=== PATIENT | female | born 1995 | race Caucasian/White ===

== ENCOUNTER 2019-08-18 05:13 | Inpatient (IN) | payer BC ==
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
[2019-08-18] MEDS: RINGERS SOLUTION,LACTATED 1,000 ML IV PRN ×2 (06:23→06:25)
[2019-08-18 06:29] LABS: ABSOLUTE LYMPHOCYTES (AUTO) 1.8 10^3/uL (0.5-4.7); ABSOLUTE MONOCYTES (AUTO) 0.7 10^3/uL (0.1-1.4); BASOPHILS % (AUTO) 0.1 % (0-2); HEMATOCRIT 39.5 % (36.0-47.0); HEMOGLOBIN 13.5 g/dL (12.0-15.5); MEAN CORPUSCULAR HEMOGLOBIN 29.4 pg (27.0-33.4); MEAN CORPUSCULAR HGB CONC 34.2 g/dL (32.0-36.0); MEAN CORPUSCULAR VOLUME 86 fl (80-97); MONOCYTES % (AUTO) 10.6 % (3-13); PLATELET COUNT 213 10^3/uL (150-450); RED CELL DISTRIBUTION WIDTH 13.7 % (11.5-14.0); SEGMENTED NEUTROPHILS % (AUTO) 61.3 % (42-78); TOTAL CELLS COUNTED % (AUTO) 100 %; WHITE BLOOD COUNT 6.6 10^3/uL (4.0-10.5)
[2019-08-18 06:31] LABS: APPEARANCE,URINE CLEAR; BILIRUBIN,URINE NEGATIVE (NEGATIVE); COLOR,URINE COLORLESS; GLUCOSE, URINE NEGATIVE (NEGATIVE); KETONES,URINE NEGATIVE (NEGATIVE); LEUKOCYTE ESTERASE,URINE NEGATIVE (NEGATIVE); NITRITE,URINE NEGATIVE (NEGATIVE); PROTEIN,URINE NEGATIVE (NEGATIVE); URINE SPECIFIC GRAVITY 1.002; UROBILINOGEN,URINE NEGATIVE mg/dL (<2.0)
[2019-08-18 06:45] LABS: URINE AMPHETAMINES SCREEN NEGATIVE; URINE BARBITURATES SCREEN NEGATIVE; URINE BENZODIAZEPINES SCREEN NEGATIVE; URINE COCAINE SCREEN NEGATIVE; URINE MARIJUANA (THC) SCREEN NEGATIVE; URINE METHADONE SCREEN NEGATIVE; URINE PHENCYCLIDINE SCREEN NEGATIVE
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
[2019-08-18 07:27] LABS: ALBUMIN 4.1 g/dL (3.5-5.0); ALCOHOL 160 mg/dL (NONE DETECTED); ALKALINE PHOSPHATASE 53 U/L (38-126); ANION GAP 6 (5-19); ASPARTATE AMINO TRANSFERASE 25 U/L (14-36); BILIRUBIN,TOTAL 0.3 mg/dL (0.2-1.3); BLOOD UREA NITROGEN 5 mg/dL (7-20); CALCIUM 8.6 mg/dL (8.4-10.2); CARBON DIOXIDE 28 mmol/L (22-30); CHLORIDE 108 mmol/L (98-107); CREATINE KINASE 87 U/L (30-135); GLUCOSE 74 mg/dL (75-110); POTASSIUM 3.5 mmol/L (3.6-5.0); TOTAL PROTEIN 7.2 g/dL (6.3-8.2)
[2019-08-18 07:30] LABS: ACETAMINOPHEN < 10 ug/mL (10-30)
[2019-08-18 07:31] LABS: SALICYLATE < 1.0 mg/dL (2.0-20.0)
[2019-08-18] MEDS ORDERED: NORMAL SALINE 1000 ML 1,000 ML IV ONE (08:03)
[2019-08-18 13:51] LABS: ANION GAP 19 (5-19); BLOOD UREA NITROGEN 4 mg/dL (7-20); CHLORIDE 107 mmol/L (98-107); GLUCOSE 97 mg/dL (75-110); POTASSIUM 4.2 mmol/L (3.6-5.0)
[2019-08-18 13:53] LABS: CARBON DIOXIDE 16 mmol/L (22-30)
[2019-08-18] MEDS ORDERED: ACETAMINOPHEN 325 MG TABLET PO PRN (14:26)
[2019-08-18] MEDS ORDERED: ONDANSETRON HCL INJ/PF 4 MG/2 ML SDV IV PRN (14:26)
[2019-08-18] MEDS ORDERED: LORAZEPAM INJ 2 MG/1 ML VIAL IV PRN ×2 (14:34→23:38)
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
--- NOTE | 2019-08-18 15:52 | RADIOLOGY REPORT (SQ) ---
EXAM DESCRIPTION: CT HEAD WITHOUT IMAGES COMPLETED DATE/TIME: 08/18/2019 3:10 pm REASON FOR STUDY: seizure COMPARISON: None. TECHNIQUE: Axial images acquired through the brain without intravenous contrast. Images reviewed wi th bone, brain and subdural windows. Additional sagittal and coronal reconstructions were generated. Images stored on PACS. All CT scanners at this facility use dose modulation, iterative reconstruction, and/or weight based d osing when appropriate to reduce radiation dose to as low as reasonably achievable (ALARA). [facility]: Dose Right [facility]: CareDose [facility]: Dose Right [facility]: Teradose 4D [facility]: AmpliSense RADIATION DOSE: CT Rad equipment meets quality standard of care and radiation dose reduction techniq ues were employed. CTDIvol: 53.2 mGy. DLP: 858 mGy-cm. mGy. LIMITATIONS: None. FINDINGS: VENTRICLES: Normal size and contour. CEREBRUM: No masses. No hemorrhage. No midline shift. No evidence for acute infarction. Normal gra y/white matter differentiation. No areas of low density in the white matter. CEREBELLUM: No masses. No hemorrhage. No alteration of density. No evidence for acute infarction. EXTRAAXIAL SPACES: No fluid collections. No masses. ORBITS AND GLOBE: No intra- or extraconal masses. Normal contour of globe without masses. CALVARIUM: No fracture. PARANASAL SINUSES: No fluid or mucosal thickening. SOFT TISSUES: No mass or hematoma. OTHER: No other significant finding. IMPRESSION: NORMAL BRAIN CT WITHOUT CONTRAST. EVIDENCE OF ACUTE STROKE: NO. COMMENT: Quality ID # [id number]: Final reports with documentation of one or more dose reduction techniques (e.g., Automated exposure control, adjustment of the mA and/or kV according to patient size, use of iterative reconstruction technique) TECHNICAL DOCUMENTATION: JOB ID: [id number] 2010 [employer]- All Rights Reserved Reading location - IP/workstation name: [email or web address]
[2019-08-18] MEDS ORDERED: DEXTROSE 50%-WATER 25 GM/50 ML DISP.SYRIN IV PRN ×2 (16:32)
[2019-08-18] MEDS ORDERED: DEXTROSE 40% GEL 15 GM TUBE PO PRN ×2 (16:32)
[2019-08-18] MEDS ORDERED: GLUCAGON,HUMAN RECOMB 1 MG INJ SUBCUT PRN (16:32)
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
--- NOTE | 2019-08-18 17:13 | RADIOLOGY REPORT (SQ) ---
EXAM DESCRIPTION: CHEST SINGLE VIEW IMAGES COMPLETED DATE/TIME: 08/18/2019 3:33 pm REASON FOR STUDY: dyspnea COMPARISON: None. EXAM PARAMETERS: NUMBER OF VIEWS: One view. TECHNIQUE: Single frontal radiographic view of the chest acquired. RADIATION DOSE: NA LIMITATIONS: None. FINDINGS: LUNGS AND PLEURA: No opacities, masses or pneumothorax. No pleural effusion. MEDIASTINUM AND HILAR STRUCTURES: No masses. Contour normal. HEART AND VASCULAR STRUCTURES: Heart normal in size. Normal vasculature. BONES: No acute findings. HARDWARE: None in the chest. OTHER: No other significant finding. IMPRESSION: NO ACUTE RADIOGRAPHIC FINDING IN THE CHEST. TECHNICAL DOCUMENTATION: JOB ID: [id number] 2010 [employer]- All Rights Reserved Reading location - IP/workstation name: [email or web address]
[2019-08-18] MEDS ORDERED: CITRIC ACID/SODIUM CITRATE ORAL SOLN 15 ML UDCUP PO SCH (18:00)
[2019-08-18] MEDS ORDERED: LEVETIRACETAM 1000 MG/NACL-ISO 1,000 MG/100 ML RTUPB IV ONE (21:58)
--- NOTE | 2019-08-18 22:07 | EKG REPORT ---
SEVERITY:- BORDERLINE ECG - SINUS TACHYCARDIA BORDERLINE T ABNORMALITIES, ANTERIOR LEADS : Confirmed by: Snuita Dunham MD 18-Aug-2019 22:06:51
--- NOTE | 2019-08-18 22:07 | EKG REPORT ---
SEVERITY:- ABNORMAL ECG - SINUS TACHYCARDIA NONSPECIFIC INTRAVENTRICULAR CONDUCTION DELAY MINIMAL ST DEPRESSION, ANTEROLATERAL LEADS : Confirmed by: Sunita Dunham MD 18-Aug-2019 22:07:10
--- NOTE | 2019-08-18 22:09 | EKG REPORT ---
SEVERITY:- BORDERLINE ECG - SINUS TACHYCARDIA BORDERLINE PROLONGED QT INTERVAL : Confirmed by: Sunita Dunham MD 18-Aug-2019 22:07:39
--- NOTE | 2019-08-18 22:09 | EKG REPORT ---
SEVERITY:- BORDERLINE ECG - SINUS TACHYCARDIA BORDERLINE RIGHT AXIS DEVIATION LATERAL Q WAVES, PROBABLY NORMAL VARIATION : Confirmed by: Sunita Dunham MD 18-Aug-2019 22:07:16
[2019-08-18] MEDS: HEPARIN SOD (PORCINE) 5,000 UNIT/ML 1 ML VIAL SUBCUT SCH (22:31)
[2019-08-18] MEDS: FAMOTIDINE 20 MG TABLET PO SCH (22:33)
[2019-08-18] MEDS: LEVETIRACETAM 1000 MG/NACL-ISO 1,000 MG/100 ML RTUPB IV SCH (22:34)
[2019-08-19] MEDS: NORMAL SALINE 1000 ML 1,000 ML IV PRN ×2 (02:10→19:04)
[2019-08-19] MEDS: HEPARIN SOD (PORCINE) 5,000 UNIT/ML 1 ML VIAL SUBCUT SCH ×3 (05:23→22:11)
[2019-08-19 05:41] LABS: ABSOLUTE LYMPHOCYTES (AUTO) 1.2 10^3/uL (0.5-4.7); ABSOLUTE MONOCYTES (AUTO) 1.2 10^3/uL (0.1-1.4); ABSOLUTE NEUT (AUTO) 7.6 10^3/uL (1.7-8.2); HEMOGLOBIN 12.4 g/dL (12.0-15.5); LYMPHOCYTES % (AUTO) 12.4 % (13-45); MEAN CORPUSCULAR HEMOGLOBIN 29.4 pg (27.0-33.4); MEAN CORPUSCULAR HGB CONC 34.4 g/dL (32.0-36.0); MEAN CORPUSCULAR VOLUME 85 fl (80-97); PLATELET COUNT 170 10^3/uL (150-450); RED BLOOD COUNT 4.22 10^6/uL (3.72-5.28); RED CELL DISTRIBUTION WIDTH 13.8 % (11.5-14.0); SEGMENTED NEUTROPHILS % (AUTO) 75.6 % (42-78); TOTAL CELLS COUNTED % (AUTO) 100 %; WHITE BLOOD COUNT 10.1 10^3/uL (4.0-10.5)
[2019-08-19 06:05] LABS: ALBUMIN 3.7 g/dL (3.5-5.0); ALKALINE PHOSPHATASE 56 U/L (38-126); AMYLASE 105 U/L (30-110); ANION GAP 7 (5-19); ASPARTATE AMINO TRANSFERASE 26 U/L (14-36); BILIRUBIN,TOTAL 0.6 mg/dL (0.2-1.3); BLOOD UREA NITROGEN 4 mg/dL (7-20); CALCIUM 8.5 mg/dL (8.4-10.2); CARBON DIOXIDE 24 mmol/L (22-30); CHLORIDE 106 mmol/L (98-107); CHOLESTEROL 130.85 mg/dL (0-200); GLUCOSE 78 mg/dL (75-110); PHOSPHORUS 2.8 mg/dL (2.5-4.5); POTASSIUM 3.5 mmol/L (3.6-5.0); TOTAL PROTEIN 6.6 g/dL (6.3-8.2); TRIGLYCERIDES 76 mg/dL (<150)
[2019-08-19 06:19] LABS: DIRECT LDL 56 mg/dL (<100)
[2019-08-19] MEDS ORDERED: POTASSI CL 20 MEQ/50 ML RIDER 20 MEQ/50 ML RTUPB IV ONE (07:15)
--- NOTE | 2019-08-19 08:26 | PDOC PROGRESS REPORT ---
Subjective Progress Note for:: 08/19/19 Subjective:: 23 year old female with history of depression, anxiety got into argument with her significant other took 50-75 Effexor tablets as a suicidal attempt then felt remorseful with the help of her friend had induced vomiting and decided to came to the emergency room for further evaluation. In the emergency room she got a grand mal seizure lasted less than 2 minutes she was postictal for a short time and completely recovered. Poison control was notified the recommendation is to keep the patient in the hospital for cardiac monitoring. The labs in the emergency room within normal limits except for a bicarb of 16. EKG shows sinus tachycardia with nonspecific changes. Patient agreed to be a smoker and also admitting alcohol use almost on daily basis. He admitted taking Effexor as a suicidal attempt. She was admitted in [place] with suicidal attempt before. 08/19/2019-patient has another seizure, grand mal seizure in the medical floor. She was given a Keppra thousand milligrams IV continued twice a day. Also on Ativan 1 mg IV every 4 as needed for seizures and anxiety. No seizure activity in the last 14 to 16 hours. Comfortably in the bed communicating reasonably. Not in distress. patient is under IVC. EKG shows sinus tachycardia and serum potassium is 3.5 to give IV 20 mg of p.o. potassium. Reason For Visit: SUICIDAL ATTEMPT Physical Exam Vital Signs: Temp Pulse Resp BP Pulse Ox 97.9 F 108 H 20 122/87 H 100 08/19/19 07:32 08/19/19 07:32 08/19/19 07:32 08/19/19 07:32 08/19/19 07:32 Intake & Output 08/18/19 08/19/19 08/20/19 06:59 06:59 06:59 Intake Total 33 2620 Output Total 1200 Balance 33 1420 Weight 77.3 kg 71.5 kg General appearance: PRESENT: no acute distress, well-developed Head exam: PRESENT: atraumatic Eye exam: PRESENT: PERRLA Mouth exam: PRESENT: moist, tongue midline Teeth exam: PRESENT: poor dentation Neck exam: ABSENT: carotid bruit, JVD, lymphadenopathy, thyromegaly Respiratory exam: PRESENT: decreased breath sounds Cardiovascular exam: PRESENT: RRR. ABSENT: diastolic murmur, rubs, systolic murmur GI/Abdominal exam: PRESENT: normal bowel sounds, soft. ABSENT: distended, guarding, mass, organolmegaly, rebound, tenderness Rectal exam: PRESENT: deferred Extremities exam: PRESENT: full ROM. ABSENT: calf tenderness, clubbing, pedal edema Neurological exam: PRESENT: alert, awake, oriented to person, oriented to place, oriented to time, oriented to situation, CN II-XII grossly intact. ABSENT: motor sensory deficit Psychiatric exam: PRESENT: appropriate affect, normal mood. ABSENT: homicidal ideation, suicidal ideation Results Laboratory Results: 08/19/19 04:55 08/19/19 04:55 08/18/19 08/19/19 08/19/19 13:15 04:55 04:55 WBC 10.1 RBC 4.22 Hgb 12.4 Hct 36.0 MCV 85 MCH 29.4 MCHC 34.4 RDW 13.8 Plt Count 170 Seg Neutrophils % 75.6 Sodium 141.7 136.7 L Potassium 4.2 3.5 L Chloride 107 106 Carbon Dioxide 16 L D 24 Anion Gap 19 7 BUN 4 L 4 L Creatinine 0.68 0.61 Est GFR ( Amer) > 60 > 60 Glucose 97 78 Calcium 9.0 8.5 Phosphorus 2.8 Magnesium 2.0 2.0 Total Bilirubin 0.6 AST 26 Alkaline Phosphatase 56 Total Protein 6.6 Albumin 3.7 Triglycerides 76 Cholesterol 130.85 LDL Cholesterol Direct 56 VLDL Cholesterol 15.0 HDL Cholesterol 60 Amylase 105 Lipase 43.5 TSH 08/19/19 04:55 WBC RBC Hgb Hct MCV MCH MCHC RDW Plt Count Seg Neutrophils % Sodium Potassium Chloride Carbon Dioxide Anion Gap BUN Creatinine Est GFR ( Amer) Glucose Calcium Phosphorus Magnesium Total Bilirubin AST Alkaline Phosphatase Total Protein Albumin Triglycerides Cholesterol LDL Cholesterol Direct VLDL Cholesterol HDL Cholesterol Amylase Lipase TSH 2.78 08/18/19 08/18/19 08/18/19 06:09 06:09 06:51 Creatine Kinase Cancelled CK-MB (CK-2) Cancelled 0.47 08/18/19 08/18/19 06:51 13:15 Creatine Kinase 87 115 CK-MB (CK-2) Impressions: Head CT 08/18/19 00:00 IMPRESSION: NORMAL BRAIN CT WITHOUT CONTRAST. EVIDENCE OF ACUTE STROKE: NO. Chest X-Ray 08/18/19 14:30 IMPRESSION: NO ACUTE RADIOGRAPHIC FINDING IN THE CHEST. Assessment and Plan - Diagnosis (1) Intentional drug overdose Qualifiers: Encounter type: initial encounter Qualified Code(s): T50.902A - Poisoning by unspecified drugs, medicaments and biological substances, intentional self- harm, initial encounter Is this a current diagnosis for this admission?: Yes Plan: 08/18/2019-patient is going to be admitted to [facility] with diagnosis of intentional drug overdose. To start on IV fluids normal saline at 125 cc/h to do the lab work on regular basis and monitor the EKG and cardiac rhythm. Patient is started on regular diet. Aspiration fall seizure precautions are requested. GI prophylaxis DVT prophylaxis requested. CT head was requested because of history of seizure. Started on Bicitra 15 mL p.o. 3 times daily for bicarb of 16. Psych consult was requested by the ER physician. Sitter will be present. 08/19/2019-patient has another seizure secondary to drug overdose with Effexor in the medical floor. Started on Keppra and IV Ativan as needed. No seizure a ctivity from last night. Patient is under IVC commitment. Patient is going to be n.p.o. for today to prevent aspiration pneumonia if the seizures recurs. Yesterday she threw up all the charcoal and probably with Effexor tablets in the stomach (2) Tobacco abuse Is this a current diagnosis for this admission?: No Plan: 08/18/2019-patient is a chronic smoker dilated smoker smokes 5 to 6 cigarettes/day. Smoking counseling was provided to place her on nicotine patch. (3) Depression Is this a current diagnosis for this admission?: No Plan: 08/18/19-patient is on Effexor for her depression the Effexor is on hold at this time. (4) Alcohol abuse Is this a current diagnosis for this admission?: Yes Plan: 08/19/2019-serum alcohol level is 160 in the emergency room admitted to drink hard liquor in her large amounts. WA protocol in place. On Ativan 1 mg every 4 hours as needed to prevent DTs. Start the patient on IV thiamine and folic acid.
[2019-08-19] MEDS: FAMOTIDINE 20 MG TABLET PO SCH ×2 (09:28→22:11)
[2019-08-19] MEDS: LEVETIRACETAM 1000 MG/NACL-ISO 1,000 MG/100 ML RTUPB IV SCH ×2 (09:28→22:10)
[2019-08-19] MEDS: NICOTINE 21 MG/24 HR PATCH.TD24 TD SCH (09:28)
[2019-08-19] MEDS ORDERED: THIAMINE HCL 100 MG, FOLIC ACID 1 MG in NORMAL SALINE 250 ML IV SCH (10:00)
[2019-08-19] MEDS ORDERED: THIAMINE HCL 100 MG in NORMAL SALINE 50 ML IV SCH (10:00)
[2019-08-19] MEDS ORDERED: FOLIC ACID INJ 5 MG/1 ML 10 ML VIAL IV SCH (10:00)
[2019-08-19] MEDS ORDERED: BENZOCAINE/MENTHOL SORE THROAT LOZENGE BUCCAL PRN (10:41)
--- NOTE | 2019-08-19 21:52 | EKG REPORT ---
SEVERITY:- BORDERLINE ECG - SINUS RHYTHM BORDERLINE PROLONGED QT INTERVAL : Confirmed by: Sunita Dunham MD 19-Aug-2019 21:51:41
[2019-08-20] MEDS: NORMAL SALINE 1000 ML 1,000 ML IV PRN (03:52)
[2019-08-20 05:11] LABS: ABSOLUTE LYMPHOCYTES (AUTO) 1.1 10^3/uL (0.5-4.7); ABSOLUTE MONOCYTES (AUTO) 0.8 10^3/uL (0.1-1.4); ABSOLUTE NEUT (AUTO) 4.9 10^3/uL (1.7-8.2); BASOPHILS % (AUTO) 0.1 % (0-2); HEMATOCRIT 38.3 % (36.0-47.0); HEMOGLOBIN 13.2 g/dL (12.0-15.5); LYMPHOCYTES % (AUTO) 15.9 % (13-45); MEAN CORPUSCULAR HEMOGLOBIN 29.4 pg (27.0-33.4); MEAN CORPUSCULAR HGB CONC 34.4 g/dL (32.0-36.0); MEAN CORPUSCULAR VOLUME 85 fl (80-97); MONOCYTES % (AUTO) 11.6 % (3-13); PLATELET COUNT 177 10^3/uL (150-450); RED BLOOD COUNT 4.49 10^6/uL (3.72-5.28); RED CELL DISTRIBUTION WIDTH 13.7 % (11.5-14.0); SEGMENTED NEUTROPHILS % (AUTO) 72.4 % (42-78); TOTAL CELLS COUNTED % (AUTO) 100 %; WHITE BLOOD COUNT 6.8 10^3/uL (4.0-10.5)
[2019-08-20 05:29] LABS: ALKALINE PHOSPHATASE 61 U/L (38-126); ANION GAP 8 (5-19); ASPARTATE AMINO TRANSFERASE 61 U/L (14-36); BILIRUBIN,TOTAL 0.6 mg/dL (0.2-1.3); BLOOD UREA NITROGEN 3 mg/dL (7-20); CALCIUM 8.3 mg/dL (8.4-10.2); CARBON DIOXIDE 25 mmol/L (22-30); CHLORIDE 103 mmol/L (98-107); GLUCOSE 81 mg/dL (75-110); POTASSIUM 3.8 mmol/L (3.6-5.0); TOTAL PROTEIN 6.6 g/dL (6.3-8.2)
[2019-08-20] MEDS: HEPARIN SOD (PORCINE) 5,000 UNIT/ML 1 ML VIAL SUBCUT SCH ×3 (06:35→21:11)
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
[2019-08-20] MEDS: NICOTINE 21 MG/24 HR PATCH.TD24 TD SCH (09:19)
[2019-08-20] MEDS: FOLIC ACID 1 MG TABLET PO SCH (09:23)
[2019-08-20] MEDS: FAMOTIDINE 20 MG TABLET PO SCH ×2 (09:23→21:10)
[2019-08-20] MEDS: THIAMINE HCL 100 MG TABLET PO SCH (09:23)
--- NOTE | 2019-08-20 17:21 | EKG REPORT ---
SEVERITY:- BORDERLINE ECG - SINUS RHYTHM BORDERLINE PROLONGED QT INTERVAL : Confirmed by: Sunita Dunham MD 20-Aug-2019 17:21:09
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
[2019-08-20] MEDS: BUSPIRONE HCL 10 MG TABLET PO SCH (21:10)
[2019-08-21 05:57] LABS: ABSOLUTE LYMPHOCYTES (AUTO) 1.4 10^3/uL (0.5-4.7); ABSOLUTE MONOCYTES (AUTO) 0.9 10^3/uL (0.1-1.4); HEMATOCRIT 40.1 % (36.0-47.0); HEMOGLOBIN 13.7 g/dL (12.0-15.5); LYMPHOCYTES % (AUTO) 19.4 % (13-45); MEAN CORPUSCULAR HGB CONC 34.1 g/dL (32.0-36.0); MEAN CORPUSCULAR VOLUME 85 fl (80-97); MONOCYTES % (AUTO) 11.9 % (3-13); PLATELET COUNT 195 10^3/uL (150-450); RED BLOOD COUNT 4.71 10^6/uL (3.72-5.28); RED CELL DISTRIBUTION WIDTH 13.4 % (11.5-14.0); SEGMENTED NEUTROPHILS % (AUTO) 68.7 % (42-78); TOTAL CELLS COUNTED % (AUTO) 100 %; WHITE BLOOD COUNT 7.3 10^3/uL (4.0-10.5)
[2019-08-21] MEDS: HEPARIN SOD (PORCINE) 5,000 UNIT/ML 1 ML VIAL SUBCUT SCH ×3 (06:37→22:05)
--- NOTE | 2019-08-21 08:59 | PDOC PROGRESS REPORT ---
Subjective Progress Note for:: 08/21/19 Subjective:: 23 year old female with history of depression, anxiety got into argument with her significant other took 50-75 Effexor tablets as a suicidal attempt then felt remorseful with the help of her friend had induced vomiting and decided to came to the emergency room for further evaluation. In the emergency room she got a grand mal seizure lasted less than 2 minutes she was postictal for a short time and completely recovered. Poison control was notified the recommendation is to keep the patient in the hospital for cardiac monitoring. The labs in the emergency room within normal limits except for a bicarb of 16. EKG shows sinus tachycardia with nonspecific changes. Patient agreed to be a smoker and also admitting alcohol use almost on daily basis. He admitted taking Effexor as a suicidal attempt. She was admitted in [place] with suicidal attempt before. 08/19/2019-patient has another seizure, grand mal seizure in the medical floor. She was given a Keppra thousand milligrams IV continued twice a day. Also on Ativan 1 mg IV every 4 as needed for seizures and anxiety. No seizure activity in the last 14 to 16 hours. Comfortably in the bed communicating reasonably. Not in distress. patient is under IVC. EKG shows sinus tachycardia and serum potassium is 3.5 to give IV 20 mg of p.o. potassium. 08/20/19-no acute events in the last 24 hours. Patient is still under IVC commitment. Plan is to discontinue Keppra to discontinue IV fluids. LFTs went up a little bit. Patient is a still on IV Ativan as needed to prevent DTs. 08/21/19-patient condition is stable. No acute events in the last 24 hours. Afebrile. No seizure activity was noted. Keppra was discontinued. Patient is not on IV fluids. Poison control signed off. Patient is medically cleared today to go to inpatient rehab. Reason For Visit: SUICIDAL ATTEMPT Physical Exam Vital Signs: Temp Pulse Resp BP Pulse Ox 98.5 F 91 18 102/70 98 08/21/19 07:41 08/21/19 07:41 08/21/19 07:41 08/21/19 07:41 08/21/19 07:41 Intake & Output 08/20/19 08/21/19 08/22/19 06:59 06:59 06:59 Intake Total 2501.2 1720 Output Total 3100 1900 Balance -598.8 -180 Weight 73.7 kg 75.6 kg General appearance: PRESENT: no acute distress, well-developed Head exam: PRESENT: atraumatic Eye exam: PRESENT: PERRLA Mouth exam: PRESENT: moist, tongue midline Teeth exam: PRESENT: poor dentation Neck exam: ABSENT: carotid bruit, JVD, lymphadenopathy, thyromegaly Respiratory exam: PRESENT: decreased breath sounds Cardiovascular exam: PRESENT: RRR. ABSENT: diastolic murmur, rubs, systolic murmur GI/Abdominal exam: PRESENT: normal bowel sounds, soft. ABSENT: distended, guarding, mass, organolmegaly, rebound, tenderness Rectal exam: PRESENT: deferred Extremities exam: PRESENT: full ROM. ABSENT: calf tenderness, clubbing, pedal edema Neurological exam: PRESENT: alert, awake, oriented to person, oriented to place, oriented to time, oriented to situation, CN II-XII grossly intact. ABSENT: motor sensory deficit Psychiatric exam: PRESENT: appropriate affect, normal mood. ABSENT: homicidal ideation, suicidal ideation Results Laboratory Results: 08/21/19 05:10 08/20/19 04:22 08/21/19 05:10 WBC 7.3 RBC 4.71 Hgb 13.7 Hct 40.1 MCV 85 MCH 29.0 MCHC 34.1 RDW 13.4 Plt Count 195 Seg Neutrophils % 68.7 08/18/19 08/18/19 08/18/19 06:09 06:09 06:51 Creatine Kinase Cancelled CK-MB (CK-2) Cancelled 0.47 08/18/19 08/18/19 06:51 13:15 Creatine Kinase 87 115 CK-MB (CK-2) Impressions: Head CT 08/18/19 00:00 IMPRESSION: NORMAL BRAIN CT WITHOUT CONTRAST. EVIDENCE OF ACUTE STROKE: NO. Chest X-Ray 08/18/19 14:30 IMPRESSION: NO ACUTE RADIOGRAPHIC FINDING IN THE CHEST. Assessment and Plan - Diagnosis (1) Intentional drug overdose Qualifiers: Encounter type: initial encounter Qualified Code(s): T50.902A - Poisoning by unspecified drugs, medicaments and biological substances, intentional self- harm, initial encounter Is this a current diagnosis for this admission?: Yes Plan: 08/18/2019-patient is going to be admitted to [facility] with diagnosis of intentional drug overdose. To start on IV fluids normal saline at 125 cc/h to do the lab work on regular basis and monitor the EKG and cardiac rhythm. Patient is started on regular diet. Aspiration fall seizure precautions are requested. GI prophylaxis DVT prophylaxis requested. CT head was requested because of history of seizure. Started on Bicitra 15 mL p.o. 3 times daily for bicarb of 16. Psych consult was requested by the ER physician. Sitter will be present. 08/19/2019-patient has another seizure secondary to drug overdose with Effexor in the medical floor. Started on Keppra and IV Ativan as needed. No seizure activity from last night. Patient is under IVC commitment. Patient is going to be n.p.o. for today to prevent aspiration pneumonia if the seizures recurs. Yesterday she threw up all the charcoal and probably with Effexor tablets in the stomach 08/20/2019-2 discontinue Keppra today and to discontinue IV fluids to start on regular diet. Patient is still under IVC. No acute events in the last 24 hours. Afebrile. 08/21/19-patient admitted with intentional drug overdose as a suicidal attempt. She is reactivity was noted in the ER and one episode upstairs. Now patient is stable for more than 48 hours. Patient is medically cleared. Started on BuSpar 5 mg p.o. twice daily as per behavioral therapy team recommendations. (2) Tobacco abuse Is this a current diagnosis for this admission?: No Plan: 08/18/2019-patient is a chronic smoker dilated smoker smokes 5 to 6 cigarettes/day. Smoking counseling was provided to place her on nicotine patch. (3) Depression Is this a current diagnosis for this admission?: No Plan: 08/18/19-patient is on Effexor for her depression the Effexor is on hold at this time. (4) Alcohol abuse Is this a current diagnosis for this admission?: Yes Plan: 08/19/2019-serum alcohol level is 160 in the emergency room admitted to drink hard liquor in her large amounts. [facility] protocol in place. On Ativan 1 mg every 4 hours as needed to prevent DTs. Start the patient on IV thiamine and folic acid. 08/20/2019-patient is receiving IV thiamine and IV folic acid. Plan is to switch the medications to p.o. from today. On Ativan 1 mg every 2 hours as needed for agitation. 08/21/2019-patient is more alert more awake no DTs noticed. Patient is on Ativan as needed to prevent DTs.
[2019-08-21] MEDS: FAMOTIDINE 20 MG TABLET PO SCH ×2 (09:18→22:05)
[2019-08-21] MEDS: THIAMINE HCL 100 MG TABLET PO SCH (09:18)
[2019-08-21] MEDS: FOLIC ACID 1 MG TABLET PO SCH (09:19)
[2019-08-21] MEDS: BUSPIRONE HCL 10 MG TABLET PO SCH ×2 (09:19→22:05)
[2019-08-21] MEDS: NICOTINE 21 MG/24 HR PATCH.TD24 TD SCH (09:20)
[2019-08-22] MEDS: HEPARIN SOD (PORCINE) 5,000 UNIT/ML 1 ML VIAL SUBCUT SCH ×2 (06:31→13:25)
--- NOTE | 2019-08-22 08:53 | PDOC PROGRESS REPORT ---
Subjective Progress Note for:: 08/22/19 Subjective:: 23 year old female with history of depression, anxiety got into argument with her significant other took 50-75 Effexor tablets as a suicidal attempt then felt remorseful with the help of her friend had induced vomiting and decided to came to the emergency room for further evaluation. In the emergency room she got a grand mal seizure lasted less than 2 minutes she was postictal for a short time and completely recovered. Poison control was notified the recommendation is to keep the patient in the hospital for cardiac monitoring. The labs in the emergency room within normal limits except for a bicarb of 16. EKG shows sinus tachycardia with nonspecific changes. Patient agreed to be a smoker and also admitting alcohol use almost on daily basis. He admitted taking Effexor as a suicidal attempt. She was admitted in [place] with suicidal attempt before. 08/19/2019-patient has another seizure, grand mal seizure in the medical floor. She was given a Keppra thousand milligrams IV continued twice a day. Also on Ativan 1 mg IV every 4 as needed for seizures and anxiety. No seizure activity in the last 14 to 16 hours. Comfortably in the bed communicating reasonably. Not in distress. patient is under IVC. EKG shows sinus tachycardia and serum potassium is 3.5 to give IV 20 mg of p.o. potassium. 08/20/19-no acute events in the last 24 hours. Patient is still under IVC commitment. Plan is to discontinue Keppra to discontinue IV fluids. LFTs went up a little bit. Patient is a still on IV Ativan as needed to prevent DTs. 08/21/19-patient condition is stable. No acute events in the last 24 hours. Afebrile. No seizure activity was noted. Keppra was discontinued. Patient is not on IV fluids. Poison control signed off. Patient is medically cleared today to go to inpatient rehab. 08/22/2019-patient is medically cleared to go to inpatient psych facility. No acute events in the last 24 hours. Afebrile. Reason For Visit: SUICIDAL ATTEMPT Physical Exam Vital Signs: Temp Pulse Resp BP Pulse Ox 98.1 F 71 14 124/68 100 08/22/19 03:26 08/22/19 07:00 08/22/19 03:26 08/22/19 03:26 08/22/19 03:26 Intake & Output 08/21/19 08/22/19 08/23/19 06:59 06:59 06:59 Intake Total 1720 120 Output Total 1900 950 Balance -180 -830 Weight 75.6 kg 73.2 kg General appearance: PRESENT: no acute distress, well-developed Head exam: PRESENT: atraumatic Eye exam: PRESENT: PERRLA Ear exam: PRESENT: normal external ear exam Mouth exam: PRESENT: neck supple Neck exam: ABSENT: carotid bruit, JVD, lymphadenopathy, thyromegaly Respiratory exam: PRESENT: clear to auscultation drea. ABSENT: rales, rhonchi, wheezes Cardiovascular exam: PRESENT: RRR. ABSENT: diastolic murmur, rubs, systolic murmur Vascular exam: PRESENT: normal capillary refill GI/Abdominal exam: PRESENT: normal bowel sounds, soft. ABSENT: distended, guarding, mass, organolmegaly, rebound, tenderness Rectal exam: PRESENT: deferred Extremities exam: PRESENT: full ROM. ABSENT: calf tenderness, clubbing, pedal edema Neurological exam: PRESENT: alert, awake, oriented to person, oriented to place, oriented to time, oriented to situation, CN II-XII grossly intact. ABSENT: motor sensory deficit Psychiatric exam: PRESENT: appropriate affect, normal mood. ABSENT: homicidal ideation, suicidal ideation Results Laboratory Results: 08/21/19 05:10 08/20/19 04:22 08/18/19 08/18/19 08/18/19 06:09 06:09 06:51 Creatine Kinase Cancelled CK-MB (CK-2) Cancelled 0.47 08/18/19 08/18/19 06:51 13:15 Creatine Kinase 87 115 CK-MB (CK-2) Impressions: Head CT 08/18/19 00:00 IMPRESSION: NORMAL BRAIN CT WITHOUT CONTRAST. EVIDENCE OF ACUTE STROKE: NO. Chest X-Ray 08/18/19 14:30 IMPRESSION: NO ACUTE RADIOGRAPHIC FINDING IN THE CHEST. Assessment and Plan - Diagnosis (1) Intentional drug overdose Qualifiers: Encounter type: initial encounter Qualified Code(s): T50.902A - Poisoning by unspecified drugs, medicaments and biological substances, intentional self- harm, initial encounter Is this a current diagnosis for this admission?: Yes Plan: 08/18/2019-patient is going to be admitted to [facility] with diagnosis of intentional drug overdose. To start on IV fluids normal saline at 125 cc/h to do the lab work on regular basis and monitor the EKG and cardiac rhythm. Patient is sta rted on regular diet. Aspiration fall seizure precautions are requested. GI prophylaxis DVT prophylaxis requested. CT head was requested because of history of seizure. Started on Bicitra 15 mL p.o. 3 times daily for bicarb of 16. Psych consult was requested by the ER physician. Sitter will be present. 08/19/2019-patient has another seizure secondary to drug overdose with Effexor in the medical floor. Started on Keppra and IV Ativan as needed. No seizure activity from last night. Patient is under IVC commitment. Patient is going to be n.p.o. for today to prevent aspiration pneumonia if the seizures recurs. Yesterday she threw up all the charcoal and probably with Effexor tablets in the stomach 08/20/2019-2 discontinue Keppra today and to discontinue IV fluids to start on regular diet. Patient is still under IVC. No acute events in the last 24 hours. Afebrile. 08/21/19-patient admitted with intentional drug overdose as a suicidal attempt. She is reactivity was noted in the ER and one episode upstairs. Now patient is stable for more than 48 hours. Patient is medically cleared. Started on BuSpar 5 mg p.o. twice daily as per behavioral therapy team recommendations. 08/22/19-patient is stable and medically cleared to go to inpatient psych facility. (2) Tobacco abuse Is this a current diagnosis for this admission?: No Plan: 08/18/2019-patient is a chronic smoker dilated smoker smokes 5 to 6 cigarettes/ day. Smoking counseling was provided to place her on nicotine patch. (3) Depression Is this a current diagnosis for this admission?: No Plan: 08/18/19-patient is on Effexor for her depression the Effexor is on hold at this time. (4) Alcohol abuse Is this a current diagnosis for this admission?: Yes Plan: 08/19/2019-serum alcohol level is 160 in the emergency room admitted to drink hard liquor in her large amounts. [facility] protocol in place. On Ativan 1 mg every 4 hours as needed to prevent DTs. Start the patient on IV thiamine and folic acid. 08/20/2019-patient is receiving IV thiamine and IV folic acid. Plan is to switch the medications to p.o. from today. On Ativan 1 mg every 2 hours as needed for agitation. 08/21/2019-patient is more alert more awake no DTs noticed. Patient is on Ativan as needed to prevent DTs.
[2019-08-22] MEDS: BUSPIRONE HCL 10 MG TABLET PO SCH (09:44)
[2019-08-22] MEDS: FAMOTIDINE 20 MG TABLET PO SCH (10:03)
[2019-08-22] MEDS: FOLIC ACID 1 MG TABLET PO SCH (10:03)
[2019-08-22] MEDS: THIAMINE HCL 100 MG TABLET PO SCH (10:03)
[2019-08-22] MEDS: NICOTINE 21 MG/24 HR PATCH.TD24 TD SCH (10:03)
[2019-08-22 12:29] VITALS: BP 116/73
--- NOTE | 2019-08-22 14:34 | PDOC DISCHARGE SUMMARY ---
Impression - Admit/DC Date/PCP Admission Date/Primary Care Provider: 08/18/19 14:02 Discharge Date: 08/22/19 - Discharge Diagnosis (1) Intentional drug overdose Is this a current diagnosis for this admission?: Yes (2) Tobacco abuse Is this a current diagnosis for this admission?: No (3) Depression Is this a current diagnosis for this admission?: No (4) Alcohol abuse Is this a current diagnosis for this admission?: Yes - Assessment Summary: (1) Intentional drug overdose Qualifiers: Encounter type: initial encounter Qualified Code(s): T50.902A - Poisoning by unspecified drugs, medicaments and biological substances, intentional self- harm, initial encounter Is this a current diagnosis for this admission?: Yes Plan: 08/18/2019-patient is going to be admitted to [facility] with diagnosis of intentional drug overdose. To start on IV fluids normal saline at 125 cc/h to do the lab work on regular basis and monitor the EKG and cardiac rhythm. Patient is started on regular diet. Aspiration fall seizure precautions are requested. GI prophylaxis DVT prophylaxis requested. CT head was requested because of history of seizure. Started on Bicitra 15 mL p.o. 3 times daily for bicarb of 16. Psych consult was requested by the ER physician. Sitter will be present. 08/19/2019-patient has another seizure secondary to drug overdose with Effexor in the medical floor. Started on Keppra and IV Ativan as needed. No seizure activity from last night. Patient is under IVC commitment. Patient is going to be n.p.o. for today to prevent aspiration pneumonia if the seizures recurs. Yesterday she threw up all the charcoal and probably with Effexor tablets in the stomach 08/20/2019-2 discontinue Keppra today and to discontinue IV fluids to start on regular diet. Patient is still under IVC. No acute events in the last 24 hours. Afebrile. 08/21/19-patient admitted with intentional drug overdose as a suicidal attempt. She is reactivity was noted in the ER and one episode upstairs. Now patient is stable for more than 48 hours. Patient is medically cleared. Started on BuSpar 5 mg p.o. twice daily as per behavioral therapy team recommendations. 08/22/19-patient is stable and medically cleared to go to inpatient psych facility. 08/22/2019-patient is accepted to inpatient psych facility in [place]. (2) Tobacco abuse Is this a current diagnosis for this admission?: No Plan: 08/18/2019-patient is a chronic smoker dilated smoker smokes 5 to 6 cigarettes/day. Smoking counseling was provided to place her on nicotine patch. (3) Depression Is this a current diagnosis for this admission?: No Plan: 08/18/19-patient is on Effexor for her depression the Effexor is on hold at this time. (4) Alcohol abuse Is this a current diagnosis for this admission?: Yes Plan: 08/19/2019-serum alcohol level is 160 in the emergency room admitted to drink hard liquor in her large amounts. [facility] protocol in place. On Ativan 1 mg every 4 ho urs as needed to prevent DTs. Start the patient on IV thiamine and folic acid. 08/20/2019-patient is receiving IV thiamine and IV folic acid. Plan is to switch the medications to p.o. from today. On Ativan 1 mg every 2 hours as needed for agitation. 08/21/2019-patient is more alert more awake no DTs noticed. Patient is on Ativan as needed to prevent DTs. - Additional Information Resuscitation Status: Full Code Home Medications: Venlafaxine HCl [Venlafaxine HCl ER] 150 mg PO DAILY 08/18/19 History of Present Illiness History of Present Illness: ALISON TERRY is a 23 year old female with history of depression, anxiety got into argument with her significant other took 50-75 Effexor tablets as a suicidal attempt then felt remorseful with the help of her friend had induced vomiting and decided to came to the emergency room for further evaluation. In the emergency room she got a grand mal seizure lasted less than 2 minutes she was postictal for a short time and completely recovered. Poison control was notified the recommendation is to keep the patient in the hospital for cardiac monitoring. The labs in the emergency room within normal limits except for a bicarb of 16. EKG shows sinus tachycardia with nonspecific changes. Patient agreed to be a smoker and also admitting alcohol use almost on daily basis. He admitted taking Effexor as a suicidal attempt. She was admitted in [place] with suicidal attempt before. Hospital Course Hospital Course: 23 year old female with history of depression, anxiety got into argument with her significant other took 50-75 Effexor tablets as a suicidal attempt then felt remorseful with the help of her friend had induced vomiting and decided to came to the emergency room for further evaluation. In the emergency room she got a grand mal seizure lasted less than 2 minutes she was postictal for a short time and completely recovered. Poison control was notified the recommendation is to keep the patient in the hospital for cardiac monitoring. The labs in the emergency room within normal limits except for a bicarb of 16. EKG shows sinus tachycardia with nonspecific changes. Patient agreed to be a smoker and also admitting alcohol use almost on daily basis. He admitted taking Effexor as a suicidal attempt. She was admitted in [place] with suicidal attempt before. 08/19/2019-patient has another seizure, grand mal seizure in the medical floor. She was given a Keppra thousand milligrams IV continued twice a day. Also on Ativan 1 mg IV every 4 as needed for seizures and anxiety. No seizure activity in the last 14 to 16 hours. Comfortably in the bed communicating reasonably. Not in distress. patient is under IVC. EKG shows sinus tachycardia and serum potassium is 3.5 to give IV 20 mg of p.o. potassium. 08/20/19-no acute events in the last 24 hours. Patient is still under IVC commitment. Plan is to discontinue Keppra to discontinue IV fluids. LFTs went up a little bit. Patient is a still on IV Ativan as needed to prevent DTs. 08/21/19-patient condition is stable. No acute events in the last 24 hours. Afebrile. No seizure activity was noted. Keppra was discontinued. Patient is not on IV fluids. Poison control signed off. Patient is medically cleared today to go to inpatient rehab. 08/22/2019-patient is medically cleared to go to inpatient psych facility. No acute events in the last 24 hours. Afebrile. 08/22/19--patient got a bed available at inpatient psych facility at [facility]. Patient is medically cleared to go today. Physical Exam Vital Signs: Temp Pulse Resp BP Pulse Ox 98.0 F 83 18 116/73 100 08/22/19 11:04 08/22/19 11:04 08/22/19 11:04 08/22/19 11:04 08/22/19 11:04 Intake & Output 08/21/19 08/22/19 08/23/19 06:59 06:59 06:59 Intake Total 0339 585 6444 Output Total 1900 950 Balance -180 -830 2640 Weight 75.6 kg 73.2 kg General appearance: PRESENT: no acute distress, well-developed Head exam: PRESENT: atraumatic Eye exam: PRESENT: PERRLA Neck exam: ABSENT: carotid bruit, JVD, lymphadenopathy, thyromegaly Respiratory exam: PRESENT: decreased breath sounds Cardiovascular exam: PRESENT: RRR. ABSENT: diastolic murmur, rubs, systolic murmur GI/Abdominal exam: PRESENT: normal bowel sounds, soft. ABSENT: distended, guarding, mass, organolmegaly, rebound, tenderness Rectal exam: PRESENT: deferred Extremities exam: PRESENT: full ROM. ABSENT: calf tenderness, clubbing, pedal edema Neurological exam: PRESENT: alert, awake, oriented to person, oriented to place, oriented to time, oriented to situation, CN II-XII grossly intact. ABSENT: motor sensory deficit Psychiatric exam: PRESENT: appropriate affect, normal mood. ABSENT: homicidal ideation, suicidal ideation Results Laboratory Results: WBC 7.3 10^3/uL (4.0-10.5) 08/21/19 05:10 RBC 4.71 10^6/uL (3.72-5.28) 08/21/19 05:10 Hgb 13.7 g/dL (12.0-15.5) 08/21/19 05:10 Hct 40.1 % (36.0-47.0) 08/21/19 05:10 MCV 85 fl (80-97) 08/21/19 05:10 MCH 29.0 pg (27.0-33.4) 08/21/19 05:10 MCHC 34.1 g/dL (32.0-36.0) 08/21/19 05:10 RDW 13.4 % (11.5-14.0) 08/21/19 05:10 Plt Count 195 10^3/uL (150-450) 08/21/19 05:10 Lymph % (Auto) 19.4 % (13-45) 08/21/19 05:10 [place] % (Auto) 11.9 % (3-13) 08/21/19 05:10 Eos % (Auto) 0.0 % (0-6) 08/21/19 05:10 Baso % (Auto) 0.0 % (0-2) 08/21/19 05:10 Absolute Neuts (auto) 5.0 10^3/uL (1.7-8.2) 08/21/19 05:10 Absolute Lymphs (auto) 1.4 10^3/uL (0.5-4.7) 08/21/19 05:10 Absolute Monos (auto) 0.9 10^3/uL (0.1-1.4) 08/21/19 05:10 Absolute Eos (auto) 0.0 10^3/uL (0.0-0.6) 08/21/19 05:10 Absolute Basos (auto) 0.0 10^3/uL (0.0-0.2) 08/21/19 05:10 Seg Neutrophils % 68.7 % (42-78) 08/21/19 05:10 Sodium 136.4 mmol/L (137-145) L 08/20/19 04:22 Potassium 3.8 mmol/L (3.6-5.0) 08/20/19 04:22 Chloride 103 mmol/L (98-107) 08/20/19 04:22 Carbon Dioxide 25 mmol/L (22-30) 08/20/19 04:22 Anion Gap 8 (5-19) 08/20/19 04:22 BUN 3 mg/dL (7-20) L 08/20/19 04:22 Creatinine 0.63 mg/dL (0.52-1.25) 08/20/19 04:22 Est GFR ( Amer) > 60 (>60) 08/20/19 04:22 Est GFR (Non-Af Amer) Cancelled 08/18/19 06:09 Est GFR (MDRD) Non-Af > 60 (>60) 08/20/19 04:22 Glucose 81 mg/dL (75-110) 08/20/19 04:22 POC Glucose 99 mg/dL (70-110) 08/18/19 13:46 Calcium 8.3 mg/dL (8.4-10.2) L 08/20/19 04:22 Phosphorus 2.8 mg/dL (2.5-4.5) 08/19/19 04:55 Magnesium 1.7 mg/dL (1.6-2.3) 08/20/19 04:22 Total Bilirubin 0.6 mg/dL (0.2-1.3) 08/20/19 04:22 Direct Bilirubin 0.0 mg/dL (0.0-0.4) 08/20/19 04:22 Neonat Total Bilirubin Not Reportable 08/20/19 04:22 Neonat Direct Bilirubin Not Reportable 08/20/19 04:22 Neonat Indirect Bili Not Reportable 08/20/19 04:22 AST 61 U/L (14-36) H 08/20/19 04:22 ALT 49 U/L (<35) H 08/20/19 04:22 Alkaline Phosphatase 61 U/L (38-126) 08/20/19 04:22 Creatine Kinase 115 U/L (30-135) 08/18/19 13:15 CK-MB (CK-2) 0.47 ng/mL (<4.55) 08/18/19 06:51 Total Protein 6.6 g/dL (6.3-8.2) 08/20/19 04:22 Albumin 4.0 g/dL (3.5-5.0) 08/20/19 04:22 Triglycerides 76 mg/dL (<150) 08/19/19 04:55 Cholesterol 130.85 mg/dL (0-200) 08/19/19 04:55 LDL Cholesterol Direct 56 mg/dL (<100) 08/19/19 04:55 VLDL Cholesterol 15.0 mg/dL (10-31) 08/19/19 04:55 HDL Cholesterol 60 mg/dL (>40) 08/19/19 04:55 Amylase 105 U/L (30-110) 08/19/19 04:55 Lipase 43.5 U/L (23-300) 08/19/19 04:55 EGFR Cancelled 08/18/19 06:09 TSH 2.78 uIU/mL (0.47-4.68) 08/19/19 04:55 Serum HCG, Qual NEGATIVE (NEGATIVE) 08/18/19 06:51 Urine Color COLORLESS 08/18/19 06:09 Urine Appearance CLEAR 08/18/19 06:09 Urine pH 7.0 (5.0-9.0) 08/18/19 06:09 Ur Specific [place] 1.002 08/18/19 06:09 Urine Protein NEGATIVE mg/dL (NEGATIVE) 08/18/19 06:09 Urine Glucose (UA) NEGATIVE mg/dL (NEGATIVE) 08/18/19 06:09 Urine Ketones NEGATIVE mg/dL (NEGATIVE) 08/18/19 06:09 Urine Blood NEGATIVE (NEGATIVE) 08/18/19 06:09 Urine Nitrite NEGATIVE (NEGATIVE) 08/18/19 06:09 Urine Bilirubin NEGATIVE (NEGATIVE) 08/18/19 06:09 Urine Urobilinogen NEGATIVE mg/dL (<2.0) 08/18/19 06:09 Ur Leukocyte Esterase NEGATIVE (NEGATIVE) 08/18/19 06:09 Urine WBC (Auto) 0 /HPF 08/18/19 06:09 Urine RBC (Auto) 0 /HPF 08/18/19 06:09 Squamous Epi Cells Auto 1 /HPF 08/18/19 06:09 Urine Ascorbic Acid NEGATIVE (NEGATIVE) 08/18/19 06:09 Salicylates < 1.0 mg/dL (2.0-20.0) L 08/18/19 06:51 Urine Opiates Screen NEGATIVE 08/18/19 06:09 Urine Methadone Screen NEGATIVE 08/18/19 06:09 Acetaminophen < 10 ug/mL (10-30) L 08/18/19 06:51 Ur Barbiturates Screen NEGATIVE 08/18/19 06:09 Ur Phencyclidine Scrn NEGATIVE 08/18/19 06:09 Ur Amphetamines Screen NEGATIVE 08/18/19 06:09 U Benzodiazepines Scrn NEGATIVE 08/18/19 06:09 Urine Cocaine Screen NEGATIVE 08/18/19 06:09 U Marijuana (THC) Screen NEGATIVE 08/18/19 06:09 Serum Alcohol 160 mg/dL (NONE DETECTED) 08/18/19 06:51 08/18/19 08/18/19 06:09 06:51 CK-MB (CK-2) Cancelled 0.47 Impressions: Head CT 08/18/19 00:00 IMPRESSION: NORMAL BRAIN CT WITHOUT CONTRAST. EVIDENCE OF ACUTE STROKE: NO. Chest X-Ray 08/18/19 14:30 IMPRESSION: NO ACUTE RADIOGRAPHIC FINDING IN THE CHEST. Plan Plan of Treatment: Patient is going to inpatient psych facility in [place]. Time Spent: Greater than 30 Minutes Stroke Is this a Stroke Patient?: No Acute Heart Failure - Is this a Heart Failure Patient?: No
--- NOTE | 2019-08-22 14:43 | PSYCHOLOGICAL NOTE ---
Psych Note - Psych Note Date seen by psych provider: 08/22/19 Time seen by psych provider: 11:45 Psych Note: Reason for Consult: Intentional Overdose Consent permissions: Patient provided verbal consent to keep both her mother and grandmother updated with plan of care Check in conducted with patient: Patient smiles and engages with clinician. She reports that she remembers arguing with her boyfriend and took all of her Effexor; " he wanted to leave the bar and I didn't." She confirms this is not the first time she is attempted suicide stating May 01, 2018 she cut her wrist and spent a week it provided in [place]. Patient states that depression and anxiety run on both sides of her family. She discloses that she was working with her therapist and came up with a game plan "on what I would do if I ever felt that way again." Patient is noted to become tearful. Patient states that she does not understand what happened identifying that last time "it was a buildup but this time there was nothing I was doing fine." She reports that she has been on Effexor since her inpatient treatment with the current dose of 150 mg daily; "it was working I like it but the only downside was as if I missed a day I could tell and it is miserable but it was actually working." Patient does admit that she drinks heavily and last year it was daily "however I have been doing much better and drinking less, I went back to school, have been working, trying to get my life back in order." Patient identifies going to school for dental assist and states that she really enjoys this so has been trying to limit her drinking to only weekends. Clinical impression: Intentional overdose Alcohol abuse Clinician was notified by attending nurse that patient's family is requesting the patient be transferred to [facility] stating they have called and identified there is a bed available. Case management: Patient's paperwork has been faxed for placement consideration [facility]-accepted pending COVID rapid [address] Ginger Abad Clinician contacted patient's mother, Kymberly [phone], to update her on plan of care. Clinician explained placement procedure. While was confirmed [facility] was the first hospital patient's information was faxed to, [facility] was the first hospital to contact to accept. Ty is in the [facility] group and may have access to her previous records while at [facility] for a longer clinical picture to provide care. Patient's mother confirms she understands and has no concerns at this time. Impression/Plan: patient is recommended to continue under IVC. While patient demonstrates forward thoguht processes (ie school) she continues to have difficulties controlling her emotion. She has not been in contact with her therapist since moving in with her boy friend in April and continues to drink knowing that this tends to be a trigger for her depression. Patient has been accepted to [facility] pending rapid COVID results; transportation will be requested upon results. Dr. Broussard was consulted on the care and management of this patient; attending physician is in agreement with recommendations and disposition.
== END 2019-08-22 17:36 | DRG 918 ==
LOC: ER 05:13 → EH 14:02 → 3S 15:18
PROVIDERS: ADMIT Internal Medicine; ATTEND Internal Medicine
DX: T43.212A Poisoning by selective serotonin and norepinephrine reuptake inhibitors, intentional self-harm, initial encounter (principal); G40.509 Epileptic seizures related to external causes, not intractable, without status epilepticus; F32.9 Major depressive disorder, single episode, unspecified; F41.9 Anxiety disorder, unspecified; F10.10 Alcohol abuse, uncomplicated; Y90.6 Blood alcohol level of 120-199 mg/100 ml; R00.0 Tachycardia, unspecified; F17.210 Nicotine dependence, cigarettes, uncomplicated; J45.909 Unspecified asthma, uncomplicated; Y92.9 Unspecified place or not applicable; Z91.5 Personal history of self-harm; Z03.818 Encounter for observation for suspected exposure to other biological agents ruled out
CPT/HCPCS: 36415; 70450; 71045; 80053; 80061; 80307; 81001; 82150; 82550; 82553; 82962; 83690; 83735; 84100; 84443; 84703; 85025; 87635; 93005; 93010; 96360; 96361; 99291; 99292; C9803; J1644; J1953; J2060; J2405; J3411; J3480; J3490; J7030; J7050; J7120